=== PATIENT | male | born 1950 | race Caucasian/White ===

== ENCOUNTER 2021-02-06 00:05 | Observation (INO) ==
[2021-02-06] MEDS ORDERED: Aspirin 81 MG TAB.CHEW PO ONE (00:17)
[2021-02-06] MEDS ORDERED: Nitroglycerin 0.4 MG TAB.SUBL SL PRN (00:17)
[2021-02-06 00:59] LABS: Bilirubin,Urine Negative (Negative); Blood,Urine Negative (Negative); Clarity,Urine Clear (Clear); Color,Urine Light-Yellow (Yellow); Glucose,Urine (UA) Normal (Normal); Ketones,Urine Negative (Negative); Leukocyte Esterase,Urine Negative (Negative); Nitrite,Urine Negative (Negative); Protein,Urine Negative (Neg-Trace); Urobilinogen,Urine Normal (Normal)
[2021-02-06 01:01] LABS: Basophils # 0.1 K/mcL (0.0-0.2); Basophils % 1.6 %; Eosinophils # 0.4 K/mcL (0.0-0.6); Eosinophils % 4.8 %; Hematocrit 41.5 % (37.5-50.1); Hemoglobin 12.8 g/dL (12.9-16.9); Lymphocytes # 1.7 K/mcL (0.6-4.6); Lymphocytes % 22.7 %; Mean Corpuscular HGB Conc 30.8 g/dL (31.6-35.5); Mean Corpuscular Hemoglobin 28.3 pg (28.0-33.3); Mean Corpuscular Volume 91.8 fL (83.0-100.0); Mean Platelet Volume 9.6 fL (9.4-12.4); Monocytes # 0.6 K/mcL (0.0-1.3); Monocytes % 8.3 %; Neutrophils # 4.4 K/mcL (1.6-8.9); Platelet Count 148 K/mcL (140-400); Red Blood Count 4.52 M/mcL (4.19-5.50); Red Cell Distribution Width 15.8 % (11.5-14.5); Segmented Neutrophils % 58.6 %; White Blood Count 7.5 K/mcL (4.3-11.1)
[2021-02-06 01:12] LABS: Activated Partial Thrombo Time 29.3 Seconds (26.0-36.0)
[2021-02-06 01:24] LABS: Alanine Aminotransferase 24 Units/L (7-52); Albumin 3.9 g/dL (3.5-5.7); Albumin/Globulin Ratio 1.5 (1.1-2.2); Alkaline Phosphatase 86 Units/L (34-104); Aspartate Amino Transferase 25 Units/L (13-39); BUN/Creatinine Ratio 14 (6-26); Bilirubin,Direct 0.1 mg/dL (0.0-0.2); Bilirubin,Indirect 0.2 mg/dL (0.0-1.0); Bilirubin,Total 0.3 mg/dL (0.3-1.0); Blood Urea Nitrogen 13 mg/dL (8-23); Calcium 9.2 mg/dL (8.6-10.3); Carbon Dioxide 24 mEq/L (23-29); Chloride 107 mEq/L (98-107); Globulin 2.6 g/dL (2.4-3.5); Glucose 143 mg/dL (70-105); Lipase 27 Units/L (11-82); Osmolality,Calculated 293 (280-300); Potassium 4.3 mEq/L (3.5-5.1); Sodium 140 mEq/L (136-145); Total Protein 6.5 g/dL (6.4-8.9); Troponin I < 0.03 ng/mL (< 0.04); eGFR For African Americans > 60 (> 60); eGFR For Non-African Americans > 60 (> 60)
[2021-02-06 02:07] LABS: Thyroid Stimulating Hormone 13.292 mcIU/mL (0.340-5.600)
[2021-02-06] MEDS ORDERED: *HR* LORazepam 2 MG/ML VIAL IVP PRN ×3 (03:26)
[2021-02-06] MEDS ORDERED: Perflutren Lipid Microsphere 1.3 ML in 0.9 % Sodium Chloride 8.7 ML IVP PRN (03:32)
[2021-02-06] MEDS ORDERED: Naloxone 0.4 MG/ML INJ IVP PRN (03:36)
[2021-02-06] MEDS ORDERED: Ondansetron 4 MG/2 ML VIAL IVP PRN (03:36)
[2021-02-06] MEDS ORDERED: Morphine Sulfate 2 MG/ML SYRINGE IVP PRN (04:00)
[2021-02-06] MEDS ORDERED: Levalbuterol Neb 1.25 MG/3 ML ONE (04:19)
[2021-02-06] MEDS: Levalbuterol Neb 1.25 MG/3 ML IH SCH ×4 (04:24→21:54)
[2021-02-06 05:45] LABS: Amylase 43 Units/L (29-103); Ethanol < 10 mg/dL (Less than 10); Magnesium 1.9 mg/dL (1.6-2.6)
[2021-02-06 05:50] LABS: % Iron Saturation 15 % (20-55); Iron 47 mcg/dL (65-175); Transferrin 228 mg/dL (203-362)
[2021-02-06 06:05] LABS: Ferritin 336 ng/mL (20-250)
[2021-02-06 06:09] LABS: Folate 10.4 ng/mL (3.0-16.0)
[2021-02-06] MEDS: *HR* Heparin 5,000 UNIT/ML VIAL SQ SCH ×3 (06:14→22:30)
[2021-02-06 08:16] LABS: Estimated Average Glucose 117 mg/dl; Hemoglobin A1C 5.7 %
[2021-02-06] MEDS: FLUoxetine HCl 10 MG CAPSULE PO SCH (08:19)
[2021-02-06] MEDS: Aspirin Enteric Coated 81 MG Tablet PO SCH (08:19)
[2021-02-06] MEDS: Folic Acid 1 MG TABLET PO SCH (08:19)
[2021-02-06] MEDS: BuPROPion SR (12 HR) 100 MG TABLET PO SCH ×2 (08:19→22:30)
[2021-02-06] MEDS: Furosemide 40 MG TABLET PO SCH (08:19)
[2021-02-06] MEDS: allopurinoL 100 MG TABLET PO SCH (08:19)
[2021-02-06] MEDS: Topiramate 100 MG TABLET PO SCH ×2 (08:20→22:31)
[2021-02-06] MEDS: Vitamin B Complex/Vit C/Vit E 1 EACH TABLET PO SCH (08:20)
[2021-02-06] MEDS: ARIPiprazole 5 MG TABLET PO SCH (08:20)
[2021-02-06] MEDS: Cholecalciferol (D-3) 1,000 UNIT (25MCG) TABLET PO SCH (08:20)
[2021-02-06] MEDS ORDERED: Regadenoson 0.4 MG/5 ML SYRINGE IVP ONE (08:39)
[2021-02-06 12:06] LABS: Amphetamine Screen,Urine Negative ng/mL (Cutoff=1000); Barbiturate Screen,Urine Negative ng/mL (Cutoff=200); Benzodiazepines Screen,Urine Negative ng/mL (Cutoff=200); Cannabinoid Screen,Urine Negative ng/mL (Cutoff = 50); Cocaine Screen,Urine Negative ng/mL (Cutoff= 300); Opiate Screen,Urine Negative ng/mL (Cutoff=300); Phencyclidine Screen,Urine Negative ng/mL (Cutoff=25)
[2021-02-06] MEDS ORDERED: Levalbuterol Neb 1.25 MG/3 ML IH SCH (16:00)
[2021-02-06] MEDS ORDERED: Finasteride 5 MG TABLET PO SCH (21:00)
[2021-02-07] MEDS: Levalbuterol Neb 1.25 MG/3 ML IH SCH ×3 (03:30→15:33)
[2021-02-07] MEDS: *HR* Heparin 5,000 UNIT/ML VIAL SQ SCH ×2 (05:37→15:34)
[2021-02-07] MEDS: Folic Acid 1 MG TABLET PO SCH (07:54)
[2021-02-07] MEDS: FLUoxetine HCl 10 MG CAPSULE PO SCH (07:54)
[2021-02-07] MEDS: ARIPiprazole 5 MG TABLET PO SCH (07:54)
[2021-02-07] MEDS: Aspirin Enteric Coated 81 MG Tablet PO SCH (07:55)
[2021-02-07] MEDS: Topiramate 100 MG TABLET PO SCH (07:55)
[2021-02-07] MEDS: Vitamin B Complex/Vit C/Vit E 1 EACH TABLET PO SCH (07:55)
[2021-02-07] MEDS: Furosemide 40 MG TABLET PO SCH (07:55)
[2021-02-07] MEDS: Cholecalciferol (D-3) 1,000 UNIT (25MCG) TABLET PO SCH (07:55)
[2021-02-07] MEDS: allopurinoL 100 MG TABLET PO SCH (07:55)
[2021-02-07] MEDS: BuPROPion SR (12 HR) 100 MG TABLET PO SCH (07:56)
[2021-02-07] MEDS ORDERED: Aspirin 81 MG TAB.CHEW PO SCH (11:15)
[2021-02-07] MEDS ORDERED: Metoprolol XL (24 HR) Succ 25 MG TAB.ER.24H PO SCH (11:15)
[2021-02-07 13:58] LABS: Adenovirus Not Detected (Not Detect); Bordetella Pertussis Not Detected (Not Detect); Chlamydophila pneumoniae Not Detected (Not Detect); Coronavirus 229E Not Detected (Not Detect); Coronavirus HKU1 Not Detected (Not Detect); Coronavirus NL63 Not Detected (Not Detect); Coronavirus OC43 Not Detected (Not Detect); Human Metapneumovirus Not Detected (Not Detect); Human Rhinovirus/Enterovirus Not Detected (Not Detect); Influenza A Subtype 2009 H1 Not Detected (Not Detect); Influenza B Not Detected (Not Detect); Mycoplasma pneumoniae Not Detected (Not Detect); Parainfluenza Virus 1 Not Detected (Not Detect); Parainfluenza Virus 2 Not Detected (Not Detect); Parainfluenza Virus 3 Not Detected (Not Detect); Parainfluenza Virus 4 Not Detected (Not Detect); Respiratory Syncytial Virus Not Detected (Not Detect); SARS-CoV-2 Not Detected (Not Detect)
[2021-02-07 15:28] VITALS: BP 126/69
== END 2021-02-07 19:44 ==
LOC: EMEROOARM 00:05 → 3BNU 00:05 → SUATTDRO 02:08 → 3BNU 02:50
PROVIDERS: ADMIT Internal Medicine; ATTEND Internal Medicine

== ENCOUNTER 2021-02-09 16:23 | Observation (INO) ==
[2021-02-09] MEDS ORDERED: Ondansetron 4 MG/2 ML VIAL IVP PRN (19:47)
[2021-02-09] MEDS ORDERED: Melatonin 3 MG TABLET PO PRN (19:47)
[2021-02-09] MEDS ORDERED: Naloxone 0.4 MG/ML INJ IVP PRN (19:47)
[2021-02-09] MEDS ORDERED: Acetaminophen 325 MG TABLET PO PRN (19:47)
[2021-02-09] MEDS: Furosemide 40 MG TABLET PO SCH (21:37)
[2021-02-09] MEDS: Finasteride 5 MG TABLET PO SCH (21:38)
[2021-02-10 04:55] LABS: BUN/Creatinine Ratio 18 (6-26); Blood Urea Nitrogen 21 mg/dL (8-23); Calcium 9.1 mg/dL (8.6-10.3); Carbon Dioxide 25 mEq/L (23-29); Chloride 104 mEq/L (98-107); Glucose 125 mg/dL (70-105); Osmolality,Calculated 290 (280-300); Sodium 138 mEq/L (136-145); eGFR For African Americans > 60 (> 60); eGFR For Non-African Americans > 60 (> 60)
[2021-02-10 04:57] LABS: INR 1.2; Prothrombin Time 13.4 Seconds (9.4-12.1)
[2021-02-10 04:59] LABS: Basophils # 0.1 K/mcL (0.0-0.2); Basophils % 1.5 %; Eosinophils # 0.3 K/mcL (0.0-0.6); Eosinophils % 4.6 %; Hematocrit 41.2 % (37.5-50.1); Hemoglobin 13.1 g/dL (12.9-16.9); Immature Granulocytes % 4.2 % (0-4); Lymphocytes # 1.8 K/mcL (0.6-4.6); Lymphocytes % 29.9 %; Mean Corpuscular HGB Conc 31.8 g/dL (31.6-35.5); Mean Corpuscular Hemoglobin 29.1 pg (28.0-33.3); Mean Corpuscular Volume 91.6 fL (83.0-100.0); Mean Platelet Volume 9.9 fL (9.4-12.4); Monocytes # 0.8 K/mcL (0.0-1.3); Monocytes % 13.1 %; Neutrophils # 2.9 K/mcL (1.6-8.9); Platelet Count 156 K/mcL (140-400); Red Cell Distribution Width 15.8 % (11.5-14.5); Segmented Neutrophils % 46.7 %; White Blood Count 6.1 K/mcL (4.3-11.1)
[2021-02-10] MEDS ORDERED: Dextrose Gel 15 GM/37.5 ML TUBE PO PRN ×2 (07:50)
[2021-02-10] MEDS ORDERED: *HR* Dextrose 50 % in Water (Vial) 50 ML VIAL IVP PRN (07:50)
[2021-02-10] MEDS ORDERED: D5% in Water 1,000 ML IVC PRN (07:50)
[2021-02-10] MEDS ORDERED: Aspirin Enteric Coated 81 MG Tablet PO SCH (09:00)
[2021-02-10 10:15] LABS: Hemoglobin 13.5 g/dL (12.9-16.9)
[2021-02-10] MEDS: allopurinoL 100 MG TABLET PO SCH (10:20)
[2021-02-10] MEDS: Cholecalciferol (D-3) 1,000 UNIT (25MCG) TABLET PO SCH (10:20)
[2021-02-10] MEDS: Cyanocobalamin (B-12) 1,000 MCG TABLET PO SCH (10:20)
[2021-02-10] MEDS: BuPROPion XL (24 HR) 150 MG TABLET PO SCH (10:20)
[2021-02-10] MEDS: Divalproex (24 HR) 500 MG TABLET PO SCH (10:20)
[2021-02-10] MEDS: Metoprolol XL (24 HR) Succ 25 MG TAB.ER.24H PO SCH (10:20)
[2021-02-10] MEDS ORDERED: methylPREDNISolone 125 MG/2 ML VIAL IVP ONE (12:34)
[2021-02-10] MEDS ORDERED: *HR* LORazepam 2 MG/ML VIAL IVP PRN (12:35)
[2021-02-10] MEDS ORDERED: Ipratropium/Albuterol Neb 3 ML IH PRN (14:30)
[2021-02-10] MEDS ORDERED: haloperidoL 5 MG TABLET PO PRN (14:30)
[2021-02-10] MEDS ORDERED: (Ketotifen Fumarate [Zaditor] 5 ML Drops) OP PRN (14:56)
[2021-02-10] MEDS: Furosemide 40 MG TABLET PO SCH (16:53)
[2021-02-10] MEDS ORDERED: SODIUM CHLORIDE/NAHCO3/KCL/PEG 4,000 ML SOLN.RECON PO ONE (18:00)
[2021-02-10] MEDS: Nystatin Cream 15 GM TUBE TP SCH ×2 (19:50→20:40)
[2021-02-10] MEDS: Finasteride 5 MG TABLET PO SCH (20:40)
[2021-02-10] MEDS: *HR* LORazepam 1 MG TABLET PO SCH (20:40)
[2021-02-10] MEDS: traZODone 50 MG TABLET PO SCH (20:40)
[2021-02-11] MEDS: Cholecalciferol (D-3) 1,000 UNIT (25MCG) TABLET PO SCH (07:38)
[2021-02-11] MEDS: Cyanocobalamin (B-12) 1,000 MCG TABLET PO SCH (07:39)
[2021-02-11] MEDS: Divalproex (24 HR) 500 MG TABLET PO SCH (07:39)
[2021-02-11] MEDS: allopurinoL 100 MG TABLET PO SCH (07:39)
[2021-02-11] MEDS: Spironolactone 25 MG TABLET PO SCH (07:39)
[2021-02-11] MEDS: Thiamine (B-1) 100 MG TABLET PO SCH (07:39)
[2021-02-11] MEDS: Metoprolol XL (24 HR) Succ 25 MG TAB.ER.24H PO SCH (07:39)
[2021-02-11] MEDS: Nystatin Cream 15 GM TUBE TP SCH ×2 (07:39→21:43)
[2021-02-11] MEDS: BuPROPion XL (24 HR) 150 MG TABLET PO SCH (07:39)
[2021-02-11] MEDS: Multivit/Ca/Min/Fe/FA 1 TAB TABLET PO SCH (07:39)
[2021-02-11] MEDS: Folic Acid 1 MG TABLET PO SCH (07:39)
[2021-02-11] MEDS: Ipratropium/Albuterol Neb 3 ML IH SCH ×3 (10:08→22:38)
[2021-02-11 11:31] LABS: Basophils # 0.1 K/mcL (0.0-0.2); Basophils % 1.1 %; Eosinophils # 0.2 K/mcL (0.0-0.6); Eosinophils % 3.8 %; Hematocrit 44.4 % (37.5-50.1); Hemoglobin 13.8 g/dL (12.9-16.9); Immature Granulocytes % 2.4 % (0-4); Lymphocytes # 1.8 K/mcL (0.6-4.6); Lymphocytes % 27.7 %; Mean Corpuscular HGB Conc 31.1 g/dL (31.6-35.5); Mean Corpuscular Hemoglobin 28.5 pg (28.0-33.3); Mean Corpuscular Volume 91.5 fL (83.0-100.0); Mean Platelet Volume 10.1 fL (9.4-12.4); Monocytes # 0.7 K/mcL (0.0-1.3); Monocytes % 11.3 %; Neutrophils # 3.4 K/mcL (1.6-8.9); Platelet Count 164 K/mcL (140-400); Red Blood Count 4.85 M/mcL (4.19-5.50); Red Cell Distribution Width 15.3 % (11.5-14.5); Segmented Neutrophils % 53.7 %; White Blood Count 6.4 K/mcL (4.3-11.1)
[2021-02-11 11:49] LABS: BUN/Creatinine Ratio 18 (6-26); Blood Urea Nitrogen 21 mg/dL (8-23); Calcium 9.2 mg/dL (8.6-10.3); Carbon Dioxide 24 mEq/L (23-29); Chloride 103 mEq/L (98-107); Glucose 150 mg/dL (70-105); Osmolality,Calculated 290 (280-300); Potassium 3.9 mEq/L (3.5-5.1); Sodium 137 mEq/L (136-145); eGFR For African Americans > 60 (> 60); eGFR For Non-African Americans > 60 (> 60)
[2021-02-11 11:50] LABS: % Iron Saturation 21 % (20-55); Iron 86 mcg/dL (65-175); Transferrin 287 mg/dL (203-362)
[2021-02-11 12:07] LABS: Ferritin 480 ng/mL (20-250)
[2021-02-11 12:23] LABS: Folate > 22.3 ng/mL (3.0-16.0); Vitamin B12 > 1500 pg/mL (250-1100)
[2021-02-11] MEDS: Apixaban 5 MG TABLET PO SCH ×2 (14:12→21:42)
[2021-02-11] MEDS ORDERED: DiphenhydraMINE CREAM 28.4 GM TUBE TP PRN (14:34)
[2021-02-11] MEDS: Furosemide 40 MG TABLET PO SCH (18:05)
[2021-02-11 18:57] LABS: Adenovirus Not Detected (Not Detect); Bordetella Pertussis Not Detected (Not Detect); Chlamydophila pneumoniae Not Detected (Not Detect); Coronavirus 229E Not Detected (Not Detect); Coronavirus HKU1 Not Detected (Not Detect); Coronavirus NL63 Not Detected (Not Detect); Coronavirus OC43 Not Detected (Not Detect); Human Metapneumovirus Not Detected (Not Detect); Human Rhinovirus/Enterovirus Not Detected (Not Detect); Influenza A Subtype 2009 H1 Not Detected (Not Detect); Influenza B Not Detected (Not Detect); Mycoplasma pneumoniae Not Detected (Not Detect); Parainfluenza Virus 1 Not Detected (Not Detect); Parainfluenza Virus 2 Not Detected (Not Detect); Parainfluenza Virus 3 Not Detected (Not Detect); Parainfluenza Virus 4 Not Detected (Not Detect); Respiratory Syncytial Virus Not Detected (Not Detect); SARS-CoV-2 Not Detected (Not Detect)
[2021-02-11] MEDS: *HR* LORazepam 1 MG TABLET PO SCH (21:42)
[2021-02-11] MEDS: traZODone 50 MG TABLET PO SCH (21:42)
[2021-02-11] MEDS: Psyllium 1 PACKET POWD.PACK PO SCH (21:42)
[2021-02-11] MEDS: Finasteride 5 MG TABLET PO SCH (21:42)
[2021-02-11] MEDS: Hydrocortisone Rectal 2.5% CRM 28 GM TUBE RC SCH (21:43)
[2021-02-12 03:26] VITALS: BP 136/80
[2021-02-12] MEDS: Ipratropium/Albuterol Neb 3 ML IH SCH (03:56)
[2021-02-12 07:21] LABS: Hematocrit 43.2 % (37.5-50.1); Hemoglobin 13.8 g/dL (12.9-16.9)
[2021-02-12] MEDS: Divalproex (24 HR) 500 MG TABLET PO SCH (09:08)
[2021-02-12] MEDS: Apixaban 5 MG TABLET PO SCH (09:08)
[2021-02-12] MEDS: Cholecalciferol (D-3) 1,000 UNIT (25MCG) TABLET PO SCH (09:09)
[2021-02-12] MEDS: BuPROPion XL (24 HR) 150 MG TABLET PO SCH (09:09)
[2021-02-12] MEDS: Multivit/Ca/Min/Fe/FA 1 TAB TABLET PO SCH (09:09)
[2021-02-12] MEDS: Spironolactone 25 MG TABLET PO SCH (09:09)
[2021-02-12] MEDS: Thiamine (B-1) 100 MG TABLET PO SCH (09:09)
[2021-02-12] MEDS: Metoprolol XL (24 HR) Succ 25 MG TAB.ER.24H PO SCH (09:09)
[2021-02-12] MEDS: Cyanocobalamin (B-12) 1,000 MCG TABLET PO SCH (09:10)
[2021-02-12] MEDS: Folic Acid 1 MG TABLET PO SCH (09:11)
[2021-02-12] MEDS: Nystatin Cream 15 GM TUBE TP SCH (09:11)
[2021-02-12] MEDS: Hydrocortisone Rectal 2.5% CRM 28 GM TUBE RC SCH (09:11)
[2021-02-12] MEDS: Psyllium 1 PACKET POWD.PACK PO SCH (09:11)
[2021-02-12] MEDS: allopurinoL 100 MG TABLET PO SCH (09:11)
[2021-02-18] MEDS ORDERED: Apixaban 5 MG TABLET PO SCH (09:00)
== END 2021-02-12 09:39 ==
LOC: 2ANU → SUATTDRO 17:28 → 2ANU 02-11 01:53
PROVIDERS: ADMIT Internal Medicine; ATTEND Internal Medicine

== ENCOUNTER 2021-02-25 20:32 | Inpatient (IN) ==
[2021-02-25] MEDS ORDERED: Acetaminophen 325 MG TABLET PO PRN (22:59)
[2021-02-25] MEDS ORDERED: Naloxone 0.4 MG/ML INJ IVP PRN (22:59)
[2021-02-25] MEDS ORDERED: Ondansetron 4 MG/2 ML VIAL IVP PRN (22:59)
[2021-02-26 00:50] LABS: Basophils # 0.1 K/mcL (0.0-0.2); Basophils % 1.3 %; Eosinophils # 0.3 K/mcL (0.0-0.6); Eosinophils % 4.1 %; Hematocrit 38.8 % (37.5-50.1); Hemoglobin 12.3 g/dL (12.9-16.9); Immature Granulocytes % 2.2 % (0-4); Lymphocytes # 1.9 K/mcL (0.6-4.6); Lymphocytes % 24.2 %; Mean Corpuscular HGB Conc 31.7 g/dL (31.6-35.5); Mean Corpuscular Hemoglobin 28.9 pg (28.0-33.3); Mean Corpuscular Volume 91.3 fL (83.0-100.0); Monocytes # 0.9 K/mcL (0.0-1.3); Monocytes % 11.1 %; Neutrophils # 4.4 K/mcL (1.6-8.9); Platelet Count 150 K/mcL (140-400); Red Blood Count 4.25 M/mcL (4.19-5.50); Red Cell Distribution Width 15.3 % (11.5-14.5); Segmented Neutrophils % 57.1 %; White Blood Count 7.7 K/mcL (4.3-11.1)
[2021-02-26] MEDS: Nystatin POWDER 30 GM BOTTLE TP SCH ×4 (01:02→20:27)
[2021-02-26 01:07] LABS: Alanine Aminotransferase 23 Units/L (7-52); Albumin 3.9 g/dL (3.5-5.7); Albumin/Globulin Ratio 1.6 (1.1-2.2); Alkaline Phosphatase 69 Units/L (34-104); Aspartate Amino Transferase 24 Units/L (13-39); BUN/Creatinine Ratio 18 (6-26); Bilirubin,Total 0.4 mg/dL (0.3-1.0); Blood Urea Nitrogen 19 mg/dL (8-23); Calcium 9.1 mg/dL (8.6-10.3); Carbon Dioxide 25 mEq/L (23-29); Chloride 108 mEq/L (98-107); Globulin 2.4 g/dL (2.4-3.5); Glucose 114 mg/dL (70-105); Osmolality,Calculated 293 (280-300); Phosphorous 4.1 mg/dL (2.7-4.5); Potassium 4.1 mEq/L (3.5-5.1); Sodium 140 mEq/L (136-145); Total Protein 6.3 g/dL (6.4-8.9); eGFR For African Americans > 60 (> 60); eGFR For Non-African Americans > 60 (> 60)
[2021-02-26] MEDS: Furosemide 40 MG TABLET PO SCH (06:30)
[2021-02-26] MEDS: Apixaban 5 MG TABLET PO SCH ×2 (09:39→20:16)
[2021-02-26 11:30] LABS: Adenovirus Not Detected (Not Detect); Bordetella Pertussis Not Detected (Not Detect); Chlamydophila pneumoniae Not Detected (Not Detect); Coronavirus 229E Not Detected (Not Detect); Coronavirus HKU1 Not Detected (Not Detect); Coronavirus NL63 Not Detected (Not Detect); Coronavirus OC43 Not Detected (Not Detect); Human Metapneumovirus Not Detected (Not Detect); Human Rhinovirus/Enterovirus Not Detected (Not Detect); Influenza A Subtype 2009 H1 Not Detected (Not Detect); Influenza B Not Detected (Not Detect); Mycoplasma pneumoniae Not Detected (Not Detect); Parainfluenza Virus 1 Not Detected (Not Detect); Parainfluenza Virus 2 Not Detected (Not Detect); Parainfluenza Virus 3 Not Detected (Not Detect); Parainfluenza Virus 4 Not Detected (Not Detect); Respiratory Syncytial Virus Not Detected (Not Detect); SARS-CoV-2 Not Detected (Not Detect)
[2021-02-26] MEDS ORDERED: Ketotifen Fumarate [Zaditor] OP PRN (14:00)
[2021-02-26] MEDS: BuPROPion XL (24 HR) 150 MG TABLET PO SCH (18:01)
[2021-02-26] MEDS: traZODone 50 MG TABLET PO SCH (20:16)
[2021-02-26] MEDS: Finasteride 5 MG TABLET PO SCH (20:16)
[2021-02-26] MEDS: Divalproex (24 HR) 500 MG TABLET PO SCH (20:16)
[2021-02-26] MEDS: DiphenhydraMINE CREAM 28.4 GM TUBE TP SCH (20:17)
[2021-02-27] MEDS: Furosemide 40 MG TABLET PO SCH (04:44)
[2021-02-27 05:16] LABS: Hematocrit 39.1 % (37.5-50.1); Hemoglobin 12.5 g/dL (12.9-16.9); Mean Corpuscular Hemoglobin 29.5 pg (28.0-33.3); Mean Corpuscular Volume 92.2 fL (83.0-100.0); Platelet Count 152 K/mcL (140-400); Red Blood Count 4.24 M/mcL (4.19-5.50); Red Cell Distribution Width 15.3 % (11.5-14.5); White Blood Count 7.1 K/mcL (4.3-11.1)
[2021-02-27 05:33] LABS: BUN/Creatinine Ratio 19 (6-26); Blood Urea Nitrogen 21 mg/dL (8-23); Calcium 9.1 mg/dL (8.6-10.3); Carbon Dioxide 27 mEq/L (23-29); Chloride 108 mEq/L (98-107); Glucose 111 mg/dL (70-105); Magnesium 2.1 mg/dL (1.6-2.6); Osmolality,Calculated 294 (280-300); Potassium 3.9 mEq/L (3.5-5.1); Sodium 140 mEq/L (136-145); eGFR For African Americans > 60 (> 60); eGFR For Non-African Americans > 60 (> 60)
[2021-02-27] MEDS ORDERED: BuPROPion XL (24 HR) 150 MG TABLET PO SCH (09:00)
[2021-02-27] MEDS: DiphenhydraMINE CREAM 28.4 GM TUBE TP SCH ×2 (09:08→20:39)
[2021-02-27] MEDS: BuPROPion XL (24 HR) 150 MG TABLET PO SCH (09:08)
[2021-02-27] MEDS: Cholecalciferol (D-3) 1,000 UNIT (25MCG) TABLET PO SCH (09:08)
[2021-02-27] MEDS: Apixaban 5 MG TABLET PO SCH ×2 (09:08→20:38)
[2021-02-27] MEDS: allopurinoL 100 MG TABLET PO SCH (09:08)
[2021-02-27] MEDS: Nystatin POWDER 30 GM BOTTLE TP SCH ×3 (09:09→20:39)
[2021-02-27] MEDS: Tiotropium 10 INH DOSE IH SCH (10:43)
[2021-02-27] MEDS ORDERED: *HR* LORazepam 2 MG/ML VIAL IVP PRN ×3 (18:12)
[2021-02-27] MEDS: Finasteride 5 MG TABLET PO SCH (20:38)
[2021-02-27] MEDS: Divalproex (24 HR) 500 MG TABLET PO SCH (20:38)
[2021-02-27] MEDS: traZODone 50 MG TABLET PO SCH (20:39)
[2021-02-28 01:53] LABS: Hematocrit 40.7 % (37.5-50.1); Hemoglobin 12.6 g/dL (12.9-16.9); Mean Corpuscular Hemoglobin 29.1 pg (28.0-33.3); Mean Platelet Volume 10.1 fL (9.4-12.4); Platelet Count 152 K/mcL (140-400); Red Blood Count 4.33 M/mcL (4.19-5.50)
[2021-02-28 02:10] LABS: BUN/Creatinine Ratio 17 (6-26); Blood Urea Nitrogen 20 mg/dL (8-23); Calcium 9.1 mg/dL (8.6-10.3); Carbon Dioxide 27 mEq/L (23-29); Chloride 104 mEq/L (98-107); Glucose 104 mg/dL (70-105); Magnesium 2.1 mg/dL (1.6-2.6); Osmolality,Calculated 289 (280-300); Phosphorous 4.8 mg/dL (2.7-4.5); Potassium 4.1 mEq/L (3.5-5.1); Sodium 138 mEq/L (136-145); eGFR For African Americans > 60 (> 60); eGFR For Non-African Americans > 60 (> 60)
[2021-02-28] MEDS: Furosemide 40 MG TABLET PO SCH (04:47)
[2021-02-28] MEDS: Tiotropium 10 INH DOSE IH SCH (07:28)
[2021-02-28] MEDS: BuPROPion XL (24 HR) 150 MG TABLET PO SCH (08:35)
[2021-02-28] MEDS: DiphenhydraMINE CREAM 28.4 GM TUBE TP SCH ×2 (08:35→19:49)
[2021-02-28] MEDS: Folic Acid 1 MG TABLET PO SCH (08:35)
[2021-02-28] MEDS: Thiamine (B-1) 100 MG TABLET PO SCH (08:35)
[2021-02-28] MEDS: Nystatin POWDER 30 GM BOTTLE TP SCH ×3 (08:35→19:49)
[2021-02-28] MEDS: Cholecalciferol (D-3) 1,000 UNIT (25MCG) TABLET PO SCH (08:35)
[2021-02-28] MEDS: Vitamin B Complex/Vit C/Vit E 1 EACH TABLET PO SCH (08:35)
[2021-02-28] MEDS: allopurinoL 100 MG TABLET PO SCH (08:35)
[2021-02-28] MEDS: Apixaban 5 MG TABLET PO SCH ×2 (08:35→19:49)
[2021-02-28] MEDS: traZODone 50 MG TABLET PO SCH (19:49)
[2021-02-28] MEDS: Divalproex (24 HR) 500 MG TABLET PO SCH (19:49)
[2021-02-28] MEDS: Finasteride 5 MG TABLET PO SCH (19:49)
[2021-03-01 02:55] LABS: Hemoglobin 12.2 g/dL (12.9-16.9); Mean Corpuscular HGB Conc 32.1 g/dL (31.6-35.5); Mean Corpuscular Hemoglobin 29.5 pg (28.0-33.3); Mean Platelet Volume 10.2 fL (9.4-12.4); Platelet Count 153 K/mcL (140-400); Red Blood Count 4.13 M/mcL (4.19-5.50); Red Cell Distribution Width 14.9 % (11.5-14.5); White Blood Count 6.8 K/mcL (4.3-11.1)
[2021-03-01 03:16] LABS: BUN/Creatinine Ratio 18 (6-26); Blood Urea Nitrogen 21 mg/dL (8-23); Calcium 8.8 mg/dL (8.6-10.3); Carbon Dioxide 25 mEq/L (23-29); Chloride 106 mEq/L (98-107); Glucose 121 mg/dL (70-105); Magnesium 1.9 mg/dL (1.6-2.6); Osmolality,Calculated 290 (280-300); Phosphorous 3.8 mg/dL (2.7-4.5); Potassium 4.1 mEq/L (3.5-5.1); Sodium 138 mEq/L (136-145); eGFR For African Americans > 60 (> 60); eGFR For Non-African Americans > 60 (> 60)
[2021-03-01] MEDS: Furosemide 40 MG TABLET PO SCH (05:57)
[2021-03-01] MEDS: Thiamine (B-1) 100 MG TABLET PO SCH (07:25)
[2021-03-01] MEDS: allopurinoL 100 MG TABLET PO SCH (07:25)
[2021-03-01] MEDS: Folic Acid 1 MG TABLET PO SCH (07:25)
[2021-03-01] MEDS: BuPROPion XL (24 HR) 150 MG TABLET PO SCH (07:25)
[2021-03-01] MEDS: Apixaban 5 MG TABLET PO SCH ×2 (07:25→22:37)
[2021-03-01] MEDS: Nystatin POWDER 30 GM BOTTLE TP SCH ×3 (07:25→22:38)
[2021-03-01] MEDS: Vitamin B Complex/Vit C/Vit E 1 EACH TABLET PO SCH (07:25)
[2021-03-01] MEDS: Cholecalciferol (D-3) 1,000 UNIT (25MCG) TABLET PO SCH (07:25)
[2021-03-01] MEDS: DiphenhydraMINE CREAM 28.4 GM TUBE TP SCH ×2 (07:26→22:38)
[2021-03-01] MEDS: Tiotropium 10 INH DOSE IH SCH (07:34)
[2021-03-01] MEDS: traZODone 50 MG TABLET PO SCH (22:37)
[2021-03-01] MEDS: Divalproex (24 HR) 500 MG TABLET PO SCH (22:37)
[2021-03-01] MEDS: Melatonin 3 MG TABLET PO PRN (22:37)
[2021-03-01] MEDS: Finasteride 5 MG TABLET PO SCH (22:37)
[2021-03-02] MEDS: Furosemide 40 MG TABLET PO SCH (06:03)
[2021-03-02] MEDS: Apixaban 5 MG TABLET PO SCH ×2 (07:13→21:03)
[2021-03-02] MEDS: Thiamine (B-1) 100 MG TABLET PO SCH (07:13)
[2021-03-02] MEDS: Cholecalciferol (D-3) 1,000 UNIT (25MCG) TABLET PO SCH (07:13)
[2021-03-02] MEDS: DiphenhydraMINE CREAM 28.4 GM TUBE TP SCH ×2 (07:13→21:04)
[2021-03-02] MEDS: Folic Acid 1 MG TABLET PO SCH (07:13)
[2021-03-02] MEDS: BuPROPion XL (24 HR) 150 MG TABLET PO SCH (07:13)
[2021-03-02] MEDS: allopurinoL 100 MG TABLET PO SCH (07:13)
[2021-03-02] MEDS: Nystatin POWDER 30 GM BOTTLE TP SCH ×3 (07:13→21:04)
[2021-03-02] MEDS: Vitamin B Complex/Vit C/Vit E 1 EACH TABLET PO SCH (07:13)
[2021-03-02] MEDS: Tiotropium 10 INH DOSE IH SCH (07:42)
[2021-03-02] MEDS: Divalproex (24 HR) 500 MG TABLET PO SCH (21:03)
[2021-03-02] MEDS: Finasteride 5 MG TABLET PO SCH (21:04)
[2021-03-02] MEDS: traZODone 50 MG TABLET PO SCH (21:04)
[2021-03-02] MEDS ORDERED: *HR* LORazepam 2 MG/ML VIAL IVP ONE (22:03)
[2021-03-03] MEDS: Furosemide 40 MG TABLET PO SCH (05:30)
[2021-03-03] MEDS: Tiotropium 10 INH DOSE IH SCH (07:47)
[2021-03-03] MEDS: Thiamine (B-1) 100 MG TABLET PO SCH (08:42)
[2021-03-03] MEDS: allopurinoL 100 MG TABLET PO SCH (08:42)
[2021-03-03] MEDS: Folic Acid 1 MG TABLET PO SCH (08:42)
[2021-03-03] MEDS: Vitamin B Complex/Vit C/Vit E 1 EACH TABLET PO SCH (08:42)
[2021-03-03] MEDS: BuPROPion XL (24 HR) 150 MG TABLET PO SCH (08:42)
[2021-03-03] MEDS: Cholecalciferol (D-3) 1,000 UNIT (25MCG) TABLET PO SCH (08:42)
[2021-03-03] MEDS: Apixaban 5 MG TABLET PO SCH ×2 (08:42→20:40)
[2021-03-03] MEDS: Nystatin POWDER 30 GM BOTTLE TP SCH ×3 (08:43→20:41)
[2021-03-03] MEDS: DiphenhydraMINE CREAM 28.4 GM TUBE TP SCH ×2 (08:43→20:41)
[2021-03-03 10:34] LABS: Adenovirus Not Detected (Not Detect); Bordetella Pertussis Not Detected (Not Detect); Chlamydophila pneumoniae Not Detected (Not Detect); Coronavirus 229E Not Detected (Not Detect); Coronavirus HKU1 Not Detected (Not Detect); Coronavirus NL63 Not Detected (Not Detect); Coronavirus OC43 Not Detected (Not Detect); Human Metapneumovirus Not Detected (Not Detect); Human Rhinovirus/Enterovirus Not Detected (Not Detect); Influenza A Subtype 2009 H1 Not Detected (Not Detect); Influenza B Not Detected (Not Detect); Mycoplasma pneumoniae Not Detected (Not Detect); Parainfluenza Virus 1 Not Detected (Not Detect); Parainfluenza Virus 2 Not Detected (Not Detect); Parainfluenza Virus 3 Not Detected (Not Detect); Parainfluenza Virus 4 Not Detected (Not Detect); Respiratory Syncytial Virus Not Detected (Not Detect); SARS-CoV-2 Not Detected (Not Detect)
[2021-03-03 17:29] LABS: Bilirubin,Urine Negative (Negative); Blood,Urine Negative (Negative); Clarity,Urine Clear (Clear); Color,Urine Yellow (Yellow); Glucose,Urine (UA) Normal (Normal); Ketones,Urine Negative (Negative); Leukocyte Esterase,Urine Negative (Negative); Nitrite,Urine Negative (Negative); Protein,Urine Negative (Neg-Trace); Specific Gravity,Urine 1.012 (1.010-1.025); Urobilinogen,Urine Normal (Normal)
[2021-03-03 17:52] LABS: Amphetamine Screen,Urine Negative ng/mL (Cutoff=1000); Barbiturate Screen,Urine Negative ng/mL (Cutoff=200); Benzodiazepines Screen,Urine Negative ng/mL (Cutoff=200); Cannabinoid Screen,Urine Negative ng/mL (Cutoff = 50); Cocaine Screen,Urine Negative ng/mL (Cutoff= 300); Opiate Screen,Urine Negative ng/mL (Cutoff=300); Phencyclidine Screen,Urine Negative ng/mL (Cutoff=25)
[2021-03-03] MEDS: Finasteride 5 MG TABLET PO SCH (20:40)
[2021-03-03] MEDS: traZODone 50 MG TABLET PO SCH (20:41)
[2021-03-03] MEDS: Divalproex (24 HR) 500 MG TABLET PO SCH (20:41)
[2021-03-04] MEDS: Furosemide 40 MG TABLET PO SCH (06:32)
[2021-03-04] MEDS: Tiotropium 10 INH DOSE IH SCH (07:28)
[2021-03-04] MEDS: BuPROPion XL (24 HR) 150 MG TABLET PO SCH (08:30)
[2021-03-04] MEDS: Folic Acid 1 MG TABLET PO SCH (08:30)
[2021-03-04] MEDS: Apixaban 5 MG TABLET PO SCH ×2 (08:30→21:18)
[2021-03-04] MEDS: Cholecalciferol (D-3) 1,000 UNIT (25MCG) TABLET PO SCH (08:30)
[2021-03-04] MEDS: Vitamin B Complex/Vit C/Vit E 1 EACH TABLET PO SCH (08:30)
[2021-03-04] MEDS: Thiamine (B-1) 100 MG TABLET PO SCH (08:30)
[2021-03-04] MEDS: allopurinoL 100 MG TABLET PO SCH (08:31)
[2021-03-04] MEDS: DiphenhydraMINE CREAM 28.4 GM TUBE TP SCH ×2 (08:31→21:17)
[2021-03-04] MEDS: Nystatin POWDER 30 GM BOTTLE TP SCH ×3 (08:31→21:17)
[2021-03-04] MEDS: Divalproex (24 HR) 500 MG TABLET PO SCH (21:18)
[2021-03-04] MEDS: Finasteride 5 MG TABLET PO SCH (21:18)
[2021-03-04] MEDS: traZODone 50 MG TABLET PO SCH (21:18)
[2021-03-05] MEDS: Furosemide 40 MG TABLET PO SCH (05:06)
[2021-03-05] MEDS: Tiotropium 10 INH DOSE IH SCH (07:58)
[2021-03-05] MEDS: Cholecalciferol (D-3) 1,000 UNIT (25MCG) TABLET PO SCH (08:28)
[2021-03-05] MEDS: BuPROPion XL (24 HR) 150 MG TABLET PO SCH (08:28)
[2021-03-05] MEDS: Folic Acid 1 MG TABLET PO SCH (08:28)
[2021-03-05] MEDS: Apixaban 5 MG TABLET PO SCH ×2 (08:28→20:50)
[2021-03-05] MEDS: Vitamin B Complex/Vit C/Vit E 1 EACH TABLET PO SCH (08:28)
[2021-03-05] MEDS: allopurinoL 100 MG TABLET PO SCH (08:28)
[2021-03-05] MEDS: Nystatin POWDER 30 GM BOTTLE TP SCH ×3 (08:28→20:52)
[2021-03-05] MEDS: DiphenhydraMINE CREAM 28.4 GM TUBE TP SCH ×2 (08:28→20:52)
[2021-03-05] MEDS: Thiamine (B-1) 100 MG TABLET PO SCH (08:28)
[2021-03-05] MEDS: Divalproex (24 HR) 500 MG TABLET PO SCH (20:50)
[2021-03-05] MEDS: traZODone 50 MG TABLET PO SCH (20:51)
[2021-03-05] MEDS: Finasteride 5 MG TABLET PO SCH (20:51)
[2021-03-06] MEDS: Furosemide 40 MG TABLET PO SCH (05:35)
[2021-03-06] MEDS: Tiotropium 10 INH DOSE IH SCH (07:56)
[2021-03-06] MEDS: Thiamine (B-1) 100 MG TABLET PO SCH (08:48)
[2021-03-06] MEDS: allopurinoL 100 MG TABLET PO SCH (08:48)
[2021-03-06] MEDS: Cholecalciferol (D-3) 1,000 UNIT (25MCG) TABLET PO SCH (08:48)
[2021-03-06] MEDS: BuPROPion XL (24 HR) 150 MG TABLET PO SCH (08:48)
[2021-03-06] MEDS: Apixaban 5 MG TABLET PO SCH ×2 (08:48→21:04)
[2021-03-06] MEDS: Nystatin POWDER 30 GM BOTTLE TP SCH ×3 (08:48→21:02)
[2021-03-06] MEDS: DiphenhydraMINE CREAM 28.4 GM TUBE TP SCH ×2 (08:48→21:02)
[2021-03-06] MEDS: Folic Acid 1 MG TABLET PO SCH (08:48)
[2021-03-06] MEDS: Vitamin B Complex/Vit C/Vit E 1 EACH TABLET PO SCH (08:48)
[2021-03-06] MEDS: Melatonin 3 MG TABLET PO PRN (21:04)
[2021-03-06] MEDS: Divalproex (24 HR) 500 MG TABLET PO SCH (21:04)
[2021-03-06] MEDS: Finasteride 5 MG TABLET PO SCH (21:04)
[2021-03-06] MEDS: traZODone 50 MG TABLET PO SCH (21:05)
[2021-03-07] MEDS: Furosemide 40 MG TABLET PO SCH (05:31)
[2021-03-07] MEDS: Tiotropium 10 INH DOSE IH SCH (07:49)
[2021-03-07] MEDS: DiphenhydraMINE CREAM 28.4 GM TUBE TP SCH ×2 (09:44→21:52)
[2021-03-07] MEDS: Nystatin POWDER 30 GM BOTTLE TP SCH ×3 (09:44→21:53)
[2021-03-07] MEDS: Apixaban 5 MG TABLET PO SCH ×2 (09:45→21:51)
[2021-03-07] MEDS: Vitamin B Complex/Vit C/Vit E 1 EACH TABLET PO SCH (09:45)
[2021-03-07] MEDS: Folic Acid 1 MG TABLET PO SCH (09:45)
[2021-03-07] MEDS: Thiamine (B-1) 100 MG TABLET PO SCH (09:45)
[2021-03-07] MEDS: allopurinoL 100 MG TABLET PO SCH (09:45)
[2021-03-07] MEDS: BuPROPion XL (24 HR) 150 MG TABLET PO SCH (09:45)
[2021-03-07] MEDS: Cholecalciferol (D-3) 1,000 UNIT (25MCG) TABLET PO SCH (09:45)
[2021-03-07] MEDS: Divalproex (24 HR) 500 MG TABLET PO SCH (21:51)
[2021-03-07] MEDS: traZODone 50 MG TABLET PO SCH (21:51)
[2021-03-07] MEDS: Melatonin 3 MG TABLET PO PRN (21:51)
[2021-03-07] MEDS: Finasteride 5 MG TABLET PO SCH (21:53)
[2021-03-08] MEDS: Furosemide 40 MG TABLET PO SCH (05:56)
[2021-03-08] MEDS: allopurinoL 100 MG TABLET PO SCH (07:49)
[2021-03-08] MEDS: Thiamine (B-1) 100 MG TABLET PO SCH (07:50)
[2021-03-08] MEDS: Cholecalciferol (D-3) 1,000 UNIT (25MCG) TABLET PO SCH (07:50)
[2021-03-08] MEDS: Vitamin B Complex/Vit C/Vit E 1 EACH TABLET PO SCH (07:50)
[2021-03-08] MEDS: Folic Acid 1 MG TABLET PO SCH (07:50)
[2021-03-08] MEDS: BuPROPion XL (24 HR) 150 MG TABLET PO SCH (07:50)
[2021-03-08] MEDS: Apixaban 5 MG TABLET PO SCH ×2 (07:50→19:49)
[2021-03-08] MEDS: Nystatin POWDER 30 GM BOTTLE TP SCH ×3 (07:51→19:51)
[2021-03-08] MEDS: DiphenhydraMINE CREAM 28.4 GM TUBE TP SCH ×2 (07:52→19:49)
[2021-03-08] MEDS: Tiotropium 10 INH DOSE IH SCH (08:06)
[2021-03-08] MEDS: Finasteride 5 MG TABLET PO SCH (19:49)
[2021-03-08] MEDS: Divalproex (24 HR) 500 MG TABLET PO SCH (19:49)
[2021-03-08] MEDS: traZODone 50 MG TABLET PO SCH (19:49)
[2021-03-09] MEDS: Tiotropium 10 INH DOSE IH SCH (07:49)
[2021-03-09] MEDS: Cholecalciferol (D-3) 1,000 UNIT (25MCG) TABLET PO SCH (07:54)
[2021-03-09] MEDS: Thiamine (B-1) 100 MG TABLET PO SCH (07:54)
[2021-03-09] MEDS: Folic Acid 1 MG TABLET PO SCH (07:54)
[2021-03-09] MEDS: Furosemide 40 MG TABLET PO SCH (07:54)
[2021-03-09] MEDS: BuPROPion XL (24 HR) 150 MG TABLET PO SCH (07:54)
[2021-03-09] MEDS: Nystatin POWDER 30 GM BOTTLE TP SCH ×3 (07:55→21:09)
[2021-03-09] MEDS: Vitamin B Complex/Vit C/Vit E 1 EACH TABLET PO SCH (07:55)
[2021-03-09] MEDS: allopurinoL 100 MG TABLET PO SCH (07:55)
[2021-03-09] MEDS: Apixaban 5 MG TABLET PO SCH ×2 (07:55→21:07)
[2021-03-09] MEDS: DiphenhydraMINE CREAM 28.4 GM TUBE TP SCH ×2 (08:35→21:09)
[2021-03-09] MEDS: Finasteride 5 MG TABLET PO SCH (21:07)
[2021-03-09] MEDS: Divalproex (24 HR) 500 MG TABLET PO SCH (21:07)
[2021-03-09] MEDS: Melatonin 3 MG TABLET PO PRN (21:08)
[2021-03-09] MEDS: traZODone 50 MG TABLET PO SCH (21:08)
[2021-03-10] MEDS: Furosemide 40 MG TABLET PO SCH (05:52)
[2021-03-10 07:29] VITALS: BP 149/77
[2021-03-10] MEDS: Tiotropium 10 INH DOSE IH SCH (08:09)
[2021-03-10] MEDS: Cholecalciferol (D-3) 1,000 UNIT (25MCG) TABLET PO SCH (08:36)
[2021-03-10] MEDS: Thiamine (B-1) 100 MG TABLET PO SCH (08:36)
[2021-03-10] MEDS: Nystatin POWDER 30 GM BOTTLE TP SCH (08:36)
[2021-03-10] MEDS: allopurinoL 100 MG TABLET PO SCH (08:36)
[2021-03-10] MEDS: BuPROPion XL (24 HR) 150 MG TABLET PO SCH (08:36)
[2021-03-10] MEDS: Vitamin B Complex/Vit C/Vit E 1 EACH TABLET PO SCH (08:36)
[2021-03-10] MEDS: DiphenhydraMINE CREAM 28.4 GM TUBE TP SCH (08:36)
[2021-03-10] MEDS: Folic Acid 1 MG TABLET PO SCH (08:36)
[2021-03-10] MEDS: Apixaban 5 MG TABLET PO SCH (08:36)
== END 2021-03-10 11:25 | disposition home or self-care (01) | DRG 606 ==
LOC: 3BNU → SUATTDRO 22:01
PROVIDERS: ADMIT Internal Medicine; ATTEND Internal Medicine

== ENCOUNTER 2021-05-26 11:53 | Inpatient (IN) ==
[2021-05-26 13:45] LABS: Basophils # 0.1 K/mcL (0.0-0.2); Basophils % 0.7 %; Eosinophils # 0.2 K/mcL (0.0-0.6); Eosinophils % 2.1 %; Hematocrit 41.1 % (37.5-50.1); Hemoglobin 12.9 g/dL (12.9-16.9); Immature Granulocytes % 1.4 % (0-4); Lymphocytes # 1.7 K/mcL (0.6-4.6); Lymphocytes % 18.2 %; Mean Corpuscular HGB Conc 31.4 g/dL (31.6-35.5); Mean Corpuscular Hemoglobin 28.7 pg (28.0-33.3); Mean Corpuscular Volume 91.5 fL (83.0-100.0); Mean Platelet Volume 10.2 fL (9.4-12.4); Monocytes # 0.8 K/mcL (0.0-1.3); Monocytes % 8.1 %; Neutrophils # 6.6 K/mcL (1.6-8.9); Platelet Count 155 K/mcL (140-400); Red Blood Count 4.49 M/mcL (4.19-5.50); Red Cell Distribution Width 14.1 % (11.5-14.5); Segmented Neutrophils % 69.5 %; White Blood Count 9.5 K/mcL (4.3-11.1)
[2021-05-26 14:09] LABS: Alanine Aminotransferase 17 Units/L (7-52); Albumin 4.3 g/dL (3.5-5.7); Alkaline Phosphatase 91 Units/L (34-104); Aspartate Amino Transferase 16 Units/L (13-39); BUN/Creatinine Ratio 13 (6-26); Bilirubin,Total 0.7 mg/dL (0.3-1.0); Blood Urea Nitrogen 13 mg/dL (8-23); Calcium 9.5 mg/dL (8.6-10.3); Carbon Dioxide 28 mEq/L (23-29); Chloride 106 mEq/L (98-107); Globulin 2.1 g/dL (2.4-3.5); Glucose 96 mg/dL (70-105); Osmolality,Calculated 290 (280-300); Sodium 140 mEq/L (136-145); Total Protein 6.4 g/dL (6.4-8.9); eGFR For African Americans > 60 (> 60); eGFR For Non-African Americans > 60 (> 60)
[2021-05-26] MEDS ORDERED: Vancomycin 2,000 MG/520 ML IV.SOLN IVPB ONE (14:46)
[2021-05-26] MEDS ORDERED: Cefepime HCl 1,000 MG in 0.9 % Sodium Chloride Mini Bag 100 ML IVPB STA (14:46)
[2021-05-26] MEDS ORDERED: Naloxone 0.4 MG/ML INJ IVP PRN (15:53)
[2021-05-26] MEDS ORDERED: Melatonin 3 MG TABLET PO PRN (15:53)
[2021-05-26] MEDS ORDERED: Ondansetron 4 MG/2 ML VIAL IVP PRN (15:53)
[2021-05-26 16:31] LABS: INR 1.1
[2021-05-26 16:34] LABS: Activated Partial Thrombo Time 29.4 Seconds (26.0-36.0)
[2021-05-26] MEDS ORDERED: Vancomycin 2,000 MG/520 ML IV.SOLN IVPB SCH (17:00)
[2021-05-26] MEDS ORDERED: Cefepime HCl 2,000 MG in 0.9 % Sodium Chloride Mini Bag 100 ML IVPB SCH (18:00)
[2021-05-26] MEDS ORDERED: Cefepime HCl 1,000 MG in Water for inj. (sterile) 10 ML IVP ONE ×2 (20:00→23:00)
[2021-05-26] MEDS: Vancomycin 2,000 MG/520 ML IV.SOLN IVPB SCH (22:05)
[2021-05-26] MEDS: Divalproex (24 HR) 500 MG TABLET PO SCH (22:11)
[2021-05-26] MEDS: Apixaban 5 MG TABLET PO SCH (22:11)
[2021-05-27] MEDS: Cefepime HCl 2,000 MG in 0.9 % Sodium Chloride Mini Bag 100 ML IVPB SCH ×2 (05:30→18:43)
[2021-05-27 05:39] LABS: Basophils # 0.1 K/mcL (0.0-0.2); Basophils % 0.7 %; Eosinophils # 0.3 K/mcL (0.0-0.6); Eosinophils % 3.4 %; Hematocrit 36.6 % (37.5-50.1); Hemoglobin 11.8 g/dL (12.9-16.9); Immature Granulocytes % 1.3 % (0-4); Lymphocytes # 1.6 K/mcL (0.6-4.6); Mean Corpuscular HGB Conc 32.2 g/dL (31.6-35.5); Mean Corpuscular Volume 89.9 fL (83.0-100.0); Mean Platelet Volume 10.2 fL (9.4-12.4); Monocytes # 0.7 K/mcL (0.0-1.3); Monocytes % 9.4 %; Neutrophils # 4.7 K/mcL (1.6-8.9); Platelet Count 152 K/mcL (140-400); Red Blood Count 4.07 M/mcL (4.19-5.50); Segmented Neutrophils % 63.2 %; White Blood Count 7.5 K/mcL (4.3-11.1)
[2021-05-27 05:54] LABS: BUN/Creatinine Ratio 12 (6-26); Blood Urea Nitrogen 11 mg/dL (8-23); Calcium 8.7 mg/dL (8.6-10.3); Carbon Dioxide 23 mEq/L (23-29); Chloride 107 mEq/L (98-107); Glucose 106 mg/dL (70-105); Osmolality,Calculated 286 (280-300); Potassium 3.7 mEq/L (3.5-5.1); Sodium 138 mEq/L (136-145); eGFR For African Americans > 60 (> 60); eGFR For Non-African Americans > 60 (> 60)
[2021-05-27] MEDS: Vancomycin 2,000 MG/520 ML IV.SOLN IVPB SCH (07:37)
[2021-05-27] MEDS: Apixaban 5 MG TABLET PO SCH ×2 (07:49→20:45)
[2021-05-27 08:12] LABS: Estimated Average Glucose 114 mg/dl; Hemoglobin A1C 5.6 %
[2021-05-27] MEDS ORDERED: Acetaminophen 325 MG TABLET PO PRN (14:27)
[2021-05-27] MEDS: Divalproex (24 HR) 500 MG TABLET PO SCH (20:43)
[2021-05-28] MEDS: Cefepime HCl 2,000 MG in 0.9 % Sodium Chloride Mini Bag 100 ML IVPB SCH ×2 (05:20→17:10)
[2021-05-28 05:56] LABS: Basophils # 0.1 K/mcL (0.0-0.2); Basophils % 1.1 %; Eosinophils # 0.3 K/mcL (0.0-0.6); Eosinophils % 4.2 %; Hematocrit 38.9 % (37.5-50.1); Hemoglobin 12.7 g/dL (12.9-16.9); Immature Granulocytes % 1.9 % (0-4); Lymphocytes # 2.3 K/mcL (0.6-4.6); Lymphocytes % 30.3 %; Mean Corpuscular HGB Conc 32.6 g/dL (31.6-35.5); Mean Corpuscular Hemoglobin 29.4 pg (28.0-33.3); Monocytes # 0.6 K/mcL (0.0-1.3); Monocytes % 8.2 %; Neutrophils # 4.1 K/mcL (1.6-8.9); Platelet Count 160 K/mcL (140-400); Red Blood Count 4.32 M/mcL (4.19-5.50); Red Cell Distribution Width 13.9 % (11.5-14.5); Segmented Neutrophils % 54.3 %; White Blood Count 7.5 K/mcL (4.3-11.1)
[2021-05-28 06:10] LABS: BUN/Creatinine Ratio 10 (6-26); Blood Urea Nitrogen 11 mg/dL (8-23); Calcium 9.3 mg/dL (8.6-10.3); Carbon Dioxide 25 mEq/L (23-29); Chloride 107 mEq/L (98-107); Glucose 104 mg/dL (70-105); Osmolality,Calculated 292 (280-300); Potassium 4.3 mEq/L (3.5-5.1); Sodium 141 mEq/L (136-145); eGFR For African Americans > 60 (> 60); eGFR For Non-African Americans > 60 (> 60)
[2021-05-28] MEDS: Apixaban 5 MG TABLET PO SCH ×2 (09:31→20:19)
[2021-05-28] MEDS: Vancomycin 2,000 MG/520 ML IV.SOLN IVPB SCH (14:37)
[2021-05-28] MEDS: Furosemide 40 MG TABLET PO SCH (14:37)
[2021-05-28] MEDS: BuPROPion XL (24 HR) 150 MG TABLET PO SCH (14:37)
[2021-05-28] MEDS: Tiotropium 10 INH DOSE IH SCH (15:17)
[2021-05-28] MEDS ORDERED: *HR* Enoxaparin 40 MG/0.4 ML SYRINGE SQ SCH (17:18)
[2021-05-28] MEDS: traZODone 50 MG TABLET PO SCH (20:18)
[2021-05-28] MEDS: Finasteride 5 MG TABLET PO SCH (20:19)
[2021-05-28] MEDS: Divalproex (24 HR) 500 MG TABLET PO SCH (20:19)
[2021-05-29] MEDS: Cefepime HCl 2,000 MG in 0.9 % Sodium Chloride Mini Bag 100 ML IVPB SCH ×2 (06:13→19:35)
[2021-05-29 06:36] LABS: Basophils # 0.1 K/mcL (0.0-0.2); Basophils % 1.4 %; Eosinophils # 0.3 K/mcL (0.0-0.6); Eosinophils % 3.8 %; Hematocrit 37.9 % (37.5-50.1); Hemoglobin 12.1 g/dL (12.9-16.9); Immature Granulocytes % 1.9 % (0-4); Lymphocytes # 1.6 K/mcL (0.6-4.6); Lymphocytes % 21.8 %; Mean Corpuscular HGB Conc 31.9 g/dL (31.6-35.5); Mean Corpuscular Hemoglobin 28.7 pg (28.0-33.3); Mean Corpuscular Volume 89.8 fL (83.0-100.0); Mean Platelet Volume 9.9 fL (9.4-12.4); Monocytes # 0.7 K/mcL (0.0-1.3); Monocytes % 8.9 %; Neutrophils # 4.5 K/mcL (1.6-8.9); Platelet Count 146 K/mcL (140-400); Red Blood Count 4.22 M/mcL (4.19-5.50); Red Cell Distribution Width 13.9 % (11.5-14.5); Segmented Neutrophils % 62.2 %; White Blood Count 7.3 K/mcL (4.3-11.1)
[2021-05-29 06:53] LABS: BUN/Creatinine Ratio 15 (6-26); Blood Urea Nitrogen 16 mg/dL (8-23); Carbon Dioxide 28 mEq/L (23-29); Chloride 106 mEq/L (98-107); Glucose 104 mg/dL (70-105); Osmolality,Calculated 293 (280-300); Potassium 3.9 mEq/L (3.5-5.1); Sodium 141 mEq/L (136-145); eGFR For African Americans > 60 (> 60); eGFR For Non-African Americans > 60 (> 60)
[2021-05-29] MEDS: allopurinoL 100 MG TABLET PO SCH (08:59)
[2021-05-29] MEDS: Apixaban 5 MG TABLET PO SCH ×2 (09:00→21:12)
[2021-05-29] MEDS: BuPROPion XL (24 HR) 150 MG TABLET PO SCH (09:00)
[2021-05-29] MEDS: Furosemide 40 MG TABLET PO SCH (09:01)
[2021-05-29] MEDS: Tiotropium 10 INH DOSE IH SCH (09:49)
[2021-05-29] MEDS: Vancomycin 2,000 MG/520 ML IV.SOLN IVPB SCH (10:56)
[2021-05-29] MEDS: Finasteride 5 MG TABLET PO SCH (21:11)
[2021-05-29] MEDS: Divalproex (24 HR) 500 MG TABLET PO SCH (21:11)
[2021-05-29] MEDS: traZODone 50 MG TABLET PO SCH (21:11)
[2021-05-30] MEDS: Cefepime HCl 2,000 MG in 0.9 % Sodium Chloride Mini Bag 100 ML IVPB SCH (05:15)
[2021-05-30] MEDS: Apixaban 5 MG TABLET PO SCH ×2 (07:50→20:17)
[2021-05-30] MEDS: allopurinoL 100 MG TABLET PO SCH (07:50)
[2021-05-30] MEDS: BuPROPion XL (24 HR) 150 MG TABLET PO SCH (07:51)
[2021-05-30] MEDS: Furosemide 40 MG TABLET PO SCH (07:51)
[2021-05-30] MEDS: Vancomycin 2,000 MG/520 ML IV.SOLN IVPB SCH (07:51)
[2021-05-30] MEDS: Tiotropium 10 INH DOSE IH SCH (08:21)
[2021-05-30] MEDS: Doxycycline 100 MG CAPSULE PO SCH (20:17)
[2021-05-30] MEDS: Finasteride 5 MG TABLET PO SCH (20:17)
[2021-05-30] MEDS: Divalproex (24 HR) 500 MG TABLET PO SCH (20:17)
[2021-05-30] MEDS: traZODone 50 MG TABLET PO SCH (20:17)
[2021-05-30 20:40] VITALS: PULSE 58
[2021-05-31 02:50] VITALS: BP 143/75; TEMP 97.9; O2SAT 93
[2021-05-31] MEDS: Tiotropium 10 INH DOSE IH SCH (07:20)
[2021-05-31] MEDS: Doxycycline 100 MG CAPSULE PO SCH (09:43)
[2021-05-31] MEDS: Furosemide 40 MG TABLET PO SCH (09:44)
[2021-05-31] MEDS: BuPROPion XL (24 HR) 150 MG TABLET PO SCH (09:44)
[2021-05-31] MEDS: Apixaban 5 MG TABLET PO SCH (09:44)
[2021-05-31] MEDS: allopurinoL 100 MG TABLET PO SCH (09:44)
== END 2021-05-31 15:57 | disposition home or self-care (01) | DRG 603 ==
LOC: EMEROOARM 11:53 → 3ANU 11:53 → SUATTDRO 16:38 → 3ANU 17:15
PROVIDERS: ADMIT Hospitalist; ATTEND Hospitalist

== ENCOUNTER 2022-04-10 22:17 | Observation (INO) ==
[2022-04-10] MEDS ORDERED: Morphine Sulfate 2 MG/ML SYRINGE IVP ONE (22:38)
[2022-04-10] MEDS ORDERED: Ondansetron 4 MG/2 ML VIAL IVP ONE (22:38)
[2022-04-10] MEDS ORDERED: Iopamidol - 370 500 ML MLS IVP ONE (22:40)
[2022-04-10] MEDS: 0.9 % Sodium Chloride 1,000 ML IVC ONE (23:07)
[2022-04-10 23:25] LABS: Basophils # 0.1 K/mcL (0.0-0.2); Basophils % 0.9 %; Eosinophils # 0.4 K/mcL (0.0-0.6); Eosinophils % 3.7 %; Hematocrit 39.5 % (37.5-50.1); Hemoglobin 13.2 g/dL (12.9-16.9); Immature Granulocytes % 0.5 % (0-4); Lymphocytes # 3.7 K/mcL (0.6-4.6); Lymphocytes % 38.3 %; Mean Corpuscular HGB Conc 33.4 g/dL (31.6-35.5); Mean Corpuscular Hemoglobin 29.5 pg (28.0-33.3); Mean Corpuscular Volume 88.4 fL (83.0-100.0); Mean Platelet Volume 10.6 fL (9.4-12.4); Monocytes # 0.7 K/mcL (0.0-1.3); Monocytes % 6.9 %; Neutrophils # 4.7 K/mcL (1.6-8.9); Platelet Count 191 K/mcL (140-400); Red Blood Count 4.47 M/mcL (4.19-5.50); Red Cell Distribution Width 14.2 % (11.5-14.5); Segmented Neutrophils % 49.7 %; White Blood Count 9.5 K/mcL (4.3-11.1)
[2022-04-11 00:01] LABS: Influenza A PCR Negative (Negative); Influenza B PCR Negative (Negative); Resp. Syncytial Virus PCR Negative (Negative)
[2022-04-11 00:02] LABS: SARS-CoV-2 by PCR (In House) Negative (Negative)
[2022-04-11 00:31] LABS: Alanine Aminotransferase 12 Units/L (7-52); Albumin 4.2 g/dL (3.5-5.7); Albumin/Globulin Ratio 1.7 (1.1-2.2); Alkaline Phosphatase 96 Units/L (34-104); Aspartate Amino Transferase 21 Units/L (13-39); BUN/Creatinine Ratio 8 (6-26); Bilirubin,Direct 0.4 mg/dL (0.0-0.2); Bilirubin,Indirect 1.9 mg/dL (0.0-1.0); Bilirubin,Total 2.3 mg/dL (0.3-1.0); Blood Urea Nitrogen 10 mg/dL (8-23); Calcium 9.2 mg/dL (8.6-10.3); Carbon Dioxide 27 mEq/L (23-29); Chloride 102 mEq/L (98-107); Ethanol < 10 mg/dL (Less than 10); Globulin 2.5 g/dL (2.4-3.5); Glucose 93 mg/dL (70-105); Lipase 7 Units/L (11-82); Magnesium 1.7 mg/dL (1.6-2.6); Osmolality,Calculated 287 (280-300); Potassium 2.7 mEq/L (3.5-5.1); Sodium 139 mEq/L (136-145); Thyroid Stimulating Hormone 5.112 mcIU/mL (0.340-5.600); Total Protein 6.7 g/dL (6.4-8.9); Troponin I < 0.03 ng/mL (< 0.04); eGFR For African Americans > 60 (> 60); eGFR For Non-African Americans 60 (> 60)
[2022-04-11] MEDS ORDERED: 0.9 % Sodium Chloride 1,000 ML IV ONE (03:00)
[2022-04-11] MEDS ORDERED: cefTRIAXone 1,000 MG in 0.9 % Sodium Chloride Mini Bag 100 ML IVPB ONE (03:02)
[2022-04-11 06:05] LABS: Bacteria,Urine Many per hpf (None-Few); Bilirubin,Urine Negative (Negative); Blood,Urine Large (Negative); Clarity,Urine Ex.Turbid (Clear); Color,Urine Yellow (Yellow); Glucose,Urine (UA) Normal (Normal); Ketones,Urine Negative (Negative); Leukocyte Esterase,Urine Large (Negative); Mucus,Urine Few per lpf (None-Few); Nitrite,Urine Positive (Negative); PH,Urine 8.5 pH Units (5.0-8.0); Protein,Urine >=600 mg/dL (Neg-Trace); RBC,Urine TNTC per hpf (0-3); Specific Gravity,Urine > 1.030 (1.010-1.025); Urobilinogen,Urine Normal (Normal); WBC,Urine TNTC per hpf (0-3)
[2022-04-11] MEDS: 0.9 % Sodium Chloride 1,000 ML IVC ONE (07:22)
[2022-04-11] MEDS ORDERED: Ondansetron 4 MG/2 ML VIAL IVP PRN (08:21)
[2022-04-11] MEDS ORDERED: Naloxone 0.4 MG/ML INJ IVP PRN (08:21)
[2022-04-11] MEDS ORDERED: Ipratropium/Albuterol Neb 3 ML IH PRN (08:26)
[2022-04-11] MEDS ORDERED: cefTRIAXone 1,000 MG in Water for inj. (sterile) 10 ML IVP SCH (09:00)
[2022-04-11] MEDS ORDERED: Pantoprazole 40 MG VIAL IVP SCH (09:00)
[2022-04-11] MEDS ORDERED: Lactobacillus 1 EACH CAP.SPRINK PO SCH (11:30)
[2022-04-11 13:23] LABS: Magnesium 1.8 mg/dL (1.6-2.6); Phosphorous 2.8 mg/dL (2.7-4.5)
[2022-04-11 13:28] LABS: BUN/Creatinine Ratio 8 (6-26); Blood Urea Nitrogen 8 mg/dL (8-23); Calcium 8.2 mg/dL (8.6-10.3); Carbon Dioxide 25 mEq/L (23-29); Chloride 108 mEq/L (98-107); Glucose 89 mg/dL (70-105); Osmolality,Calculated 290 (280-300); Potassium 3.5 mEq/L (3.5-5.1); Sodium 141 mEq/L (136-145); eGFR For African Americans > 60 (> 60); eGFR For Non-African Americans > 60 (> 60)
[2022-04-11] MEDS ORDERED: *HR* Heparin 5,000 UNIT/ML VIAL SQ SCH (18:00)
[2022-04-11 18:31] VITALS: BP 186/84; PULSE 52; TEMP 97.5; O2SAT 97
[2022-04-12] MEDS ORDERED: cefTRIAXone 1,000 MG in 0.9 % Sodium Chloride 10 ML IVP SCH (06:00)
== END 2022-04-11 19:12 | disposition left against medical advice (07) ==
LOC: 3BNU 22:17 → EMEROOARM 22:17 → 3BNU 04-11 11:15
PROVIDERS: ADMIT General Practice; ATTEND General Practice

== ENCOUNTER 2022-05-04 21:05 | Inpatient (IN) ==
[2022-05-04] MEDS ORDERED: levoFLOXacin 750 MG/150 ML 750 MG/150 ML BAG IVPB ONE (23:18)
[2022-05-04] MEDS ORDERED: MetroNIDAZOLE 500 MG/100 ML 500 MG/100 ML BAG IVPB ONE (23:18)
[2022-05-05 00:33] LABS: Bacteria,Urine Few per hpf (None-Few); Bilirubin,Urine Negative (Negative); Blood,Urine Large (Negative); Clarity,Urine Turbid (Clear); Color,Urine Brown (Yellow); Glucose,Urine (UA) Normal (Normal); Ketones,Urine Trace mg/dL (Negative); Leukocyte Esterase,Urine Negative (Negative); Mucus,Urine Few per lpf (None-Few); Nitrite,Urine Negative (Negative); Protein,Urine 100 mg/dL (Neg-Trace); RBC,Urine TNTC per hpf (0-3); Urobilinogen,Urine Normal (Normal); WBC,Urine 0-3 per hpf (0-3)
[2022-05-05 00:53] LABS: Eosinophils % 3.5 %; Hemoglobin 13.7 g/dL (12.9-16.9); Immature Platelets 6.4 % (1.1-6.1)
[2022-05-05 01:02] LABS: Alanine Aminotransferase 8 Units/L (7-52); Albumin 4.3 g/dL (3.5-5.7); Alkaline Phosphatase 102 Units/L (34-104); Aspartate Amino Transferase 12 Units/L (13-39); BUN/Creatinine Ratio 9 (6-26); Bilirubin,Direct 0.3 mg/dL (0.0-0.2); Bilirubin,Indirect 1.8 mg/dL (0.0-1.0); Bilirubin,Total 2.1 mg/dL (0.3-1.0); Blood Urea Nitrogen 9 mg/dL (8-23); Calcium 9.1 mg/dL (8.6-10.3); Carbon Dioxide 26 mEq/L (23-29); Chloride 105 mEq/L (98-107); Globulin 2.2 g/dL (2.4-3.5); Glucose 82 mg/dL (70-105); Osmolality,Calculated 284 (280-300); Potassium 3.4 mEq/L (3.5-5.1); Sodium 138 mEq/L (136-145); Total Protein 6.5 g/dL (6.4-8.9); eGFR For African Americans > 60 (> 60); eGFR For Non-African Americans > 60 (> 60)
[2022-05-05 01:06] LABS: Basophils # 0.1 K/mcL (0.0-0.2); Basophils % 0.9 %; Eosinophils # 0.3 K/mcL (0.0-0.6); Immature Granulocytes % 0.4 % (0-4); Lymphocytes # 3.2 K/mcL (0.6-4.6); Lymphocytes % 34.9 %; Mean Corpuscular HGB Conc 33.4 g/dL (31.6-35.5); Mean Corpuscular Hemoglobin 29.6 pg (28.0-33.3); Mean Corpuscular Volume 88.6 fL (83.0-100.0); Mean Platelet Volume 10.8 fL (9.4-12.4); Monocytes # 0.4 K/mcL (0.0-1.3); Monocytes % 4.4 %; Neutrophils # 5.1 K/mcL (1.6-8.9); Platelet Count 156 K/mcL (140-400); Red Blood Count 4.63 M/mcL (4.19-5.50); Red Cell Distribution Width 14.2 % (11.5-14.5); Segmented Neutrophils % 55.9 %; White Blood Count 9.1 K/mcL (4.3-11.1)
[2022-05-05 01:10] LABS: INR 1.1; Prothrombin Time 11.9 Seconds (9.4-12.1)
[2022-05-05 01:12] LABS: Activated Partial Thrombo Time 32.7 Seconds (26.0-36.0)
[2022-05-05] MEDS ORDERED: Acetaminophen 325 MG TABLET PO PRN (01:29)
[2022-05-05] MEDS ORDERED: Naloxone 0.4 MG/ML INJ IVP PRN (01:29)
[2022-05-05] MEDS ORDERED: Melatonin 3 MG TABLET PO PRN (01:29)
[2022-05-05] MEDS ORDERED: *HR* HYDROcodone/Acet 5/325 mg TABLET PO PRN (01:29)
[2022-05-05] MEDS ORDERED: *HR* OxyCODONE Immed Rel 5 MG TABLET PO PRN (01:29)
[2022-05-05] MEDS ORDERED: Ondansetron ODT 4 MG TAB.RAPDIS SL PRN (01:29)
[2022-05-05 04:40] LABS: BUN/Creatinine Ratio 10 (6-26); Blood Urea Nitrogen 9 mg/dL (8-23); Calcium 8.6 mg/dL (8.6-10.3); Carbon Dioxide 26 mEq/L (23-29); Chloride 105 mEq/L (98-107); Glucose 82 mg/dL (70-105); Magnesium 1.7 mg/dL (1.6-2.6); Osmolality,Calculated 286 (280-300); Potassium 3.2 mEq/L (3.5-5.1); Sodium 139 mEq/L (136-145); eGFR For African Americans > 60 (> 60); eGFR For Non-African Americans > 60 (> 60)
[2022-05-05 04:44] LABS: Hematocrit 39.5 % (37.5-50.1); Hemoglobin 12.9 g/dL (12.9-16.9); Mean Corpuscular HGB Conc 32.7 g/dL (31.6-35.5); Mean Corpuscular Hemoglobin 29.2 pg (28.0-33.3); Mean Corpuscular Volume 89.4 fL (83.0-100.0); Mean Platelet Volume 10.8 fL (9.4-12.4); Platelet Count 136 K/mcL (140-400); Red Blood Count 4.42 M/mcL (4.19-5.50); White Blood Count 7.5 K/mcL (4.3-11.1)
[2022-05-05] MEDS: 0.9 % Sodium Chloride 1,000 ML IVC SCH ×2 (04:54→22:28)
[2022-05-05] MEDS ORDERED: MetroNIDAZOLE 500 MG/100 ML 500 MG/100 ML BAG IVPB SCH (08:00)
[2022-05-05 10:07] LABS: Adenovirus Not Detected (Not Detect); Bordetella Pertussis Not Detected (Not Detect); Chlamydophila pneumoniae Not Detected (Not Detect); Coronavirus 229E Not Detected (Not Detect); Coronavirus HKU1 Not Detected (Not Detect); Coronavirus NL63 Not Detected (Not Detect); Coronavirus OC43 Not Detected (Not Detect); Human Metapneumovirus Not Detected (Not Detect); Human Rhinovirus/Enterovirus Not Detected (Not Detect); Influenza A Subtype 2009 H1 Not Detected (Not Detect); Influenza B Not Detected (Not Detect); Mycoplasma pneumoniae Not Detected (Not Detect); Parainfluenza Virus 1 Not Detected (Not Detect); Parainfluenza Virus 2 Not Detected (Not Detect); Parainfluenza Virus 3 Not Detected (Not Detect); Parainfluenza Virus 4 Not Detected (Not Detect); Respiratory Syncytial Virus Not Detected (Not Detect); SARS-CoV-2 Not Detected (Not Detect)
[2022-05-05] MEDS: amLODIPine 5 MG TABLET PO SCH (11:05)
[2022-05-05] MEDS: Vancomycin Oral Soln 125 MG/2.5 ML UDC PO SCH ×2 (17:06→22:20)
[2022-05-05] MEDS ORDERED: levoFLOXacin 750 MG/150 ML 750 MG/150 ML BAG IVPB SCH (21:00)
[2022-05-06 02:10] LABS: Basophils % 0.6 %; Hemoglobin 12.4 g/dL (12.9-16.9); Lymphocytes % 20.6 %; Mean Corpuscular HGB Conc 32.6 g/dL (31.6-35.5); Red Cell Distribution Width 13.8 % (11.5-14.5)
[2022-05-06 02:12] LABS: Basophils # 0.1 K/mcL (0.0-0.2); Eosinophils # 0.3 K/mcL (0.0-0.6); Eosinophils % 3.4 %; Immature Granulocytes % 0.5 % (0-4); Immature Platelets 5.4 % (1.1-6.1); Mean Corpuscular Hemoglobin 29.2 pg (28.0-33.3); Mean Corpuscular Volume 89.4 fL (83.0-100.0); Mean Platelet Volume 10.1 fL (9.4-12.4); Monocytes # 0.7 K/mcL (0.0-1.3); Monocytes % 6.9 %; Neutrophils # 6.6 K/mcL (1.6-8.9); Platelet Count 144 K/mcL (140-400); Red Blood Count 4.25 M/mcL (4.19-5.50); White Blood Count 9.7 K/mcL (4.3-11.1)
[2022-05-06 02:34] LABS: BUN/Creatinine Ratio 6 (6-26); Blood Urea Nitrogen 6 mg/dL (8-23); Calcium 8.7 mg/dL (8.6-10.3); Carbon Dioxide 25 mEq/L (23-29); Chloride 106 mEq/L (98-107); Glucose 85 mg/dL (70-105); Magnesium 1.6 mg/dL (1.6-2.6); Osmolality,Calculated 283 (280-300); Phosphorous 2.3 mg/dL (2.7-4.5); Potassium 3.9 mEq/L (3.5-5.1); Sodium 138 mEq/L (136-145); eGFR For African Americans > 60 (> 60); eGFR For Non-African Americans > 60 (> 60)
[2022-05-06] MEDS ORDERED: NON-FORMULARY MEDICATION 1 EACH EACH (Albuterol Sulfate 8.5 GM Hfa.Aer.Ad) IH PRN (08:48)
[2022-05-06] MEDS ORDERED: Ipratropium/Albuterol Neb 3 ML IH PRN (08:48)
[2022-05-06] MEDS ORDERED: Furosemide 40 MG TABLET PO SCH (09:00)
[2022-05-06] MEDS: BuPROPion XL (24 HR) 150 MG TABLET PO SCH (10:06)
[2022-05-06] MEDS: amLODIPine 5 MG TABLET PO SCH (10:06)
[2022-05-06] MEDS: Vancomycin Oral Soln 125 MG/2.5 ML UDC PO SCH ×4 (10:06→21:27)
[2022-05-06] MEDS: Cholecalciferol (D-3) 1,000 UNIT (25MCG) TABLET PO SCH (10:07)
[2022-05-06] MEDS: allopurinoL 100 MG TABLET PO SCH (10:07)
[2022-05-06] MEDS ORDERED: Divalproex (24 HR) 500 MG TABLET PO SCH (21:00)
[2022-05-06] MEDS ORDERED: Finasteride 5 MG TABLET PO SCH (21:00)
[2022-05-06] MEDS ORDERED: traZODone 50 MG TABLET PO SCH (21:00)
[2022-05-07 07:21] LABS: Hemoglobin 12.4 g/dL (12.9-16.9); Immature Granulocytes % 0.5 % (0-4); Monocytes % 7.8 %
[2022-05-07 07:23] LABS: Basophils # 0.1 K/mcL (0.0-0.2); Basophils % 1.4 %; Eosinophils # 0.3 K/mcL (0.0-0.6); Eosinophils % 4.9 %; Hematocrit 38.6 % (37.5-50.1); Immature Platelets 6.3 % (1.1-6.1); Lymphocytes # 1.6 K/mcL (0.6-4.6); Lymphocytes % 24.6 %; Mean Corpuscular HGB Conc 32.1 g/dL (31.6-35.5); Mean Corpuscular Volume 90.4 fL (83.0-100.0); Mean Platelet Volume 10.5 fL (9.4-12.4); Monocytes # 0.5 K/mcL (0.0-1.3); Platelet Count 135 K/mcL (140-400); Red Blood Count 4.27 M/mcL (4.19-5.50); Segmented Neutrophils % 60.8 %; White Blood Count 6.5 K/mcL (4.3-11.1)
[2022-05-07 07:44] LABS: BUN/Creatinine Ratio 8 (6-26); Blood Urea Nitrogen 8 mg/dL (8-23); Calcium 8.8 mg/dL (8.6-10.3); Carbon Dioxide 27 mEq/L (23-29); Chloride 104 mEq/L (98-107); Glucose 114 mg/dL (70-105); Osmolality,Calculated 285 (280-300); Potassium 3.4 mEq/L (3.5-5.1); Sodium 138 mEq/L (136-145); eGFR For African Americans > 60 (> 60); eGFR For Non-African Americans > 60 (> 60)
[2022-05-07] MEDS: Cholecalciferol (D-3) 1,000 UNIT (25MCG) TABLET PO SCH (09:50)
[2022-05-07] MEDS: allopurinoL 100 MG TABLET PO SCH (09:50)
[2022-05-07] MEDS: BuPROPion XL (24 HR) 150 MG TABLET PO SCH (09:50)
[2022-05-07] MEDS: amLODIPine 5 MG TABLET PO SCH (09:50)
[2022-05-07] MEDS: Vancomycin Oral Soln 125 MG/2.5 ML UDC PO SCH ×2 (09:50→13:46)
[2022-05-07 09:54] VITALS: BP 135/70; PULSE 52; TEMP 97.4; O2SAT 95
== END 2022-05-07 15:00 | disposition home or self-care (01) | DRG 372 ==
LOC: 3ANU 21:05 → EMEROOARM 21:05 → SUATTDRO 05-05 01:34 → 3ANU 05-05 02:07
PROVIDERS: ADMIT Internal Medicine; ATTEND Internal Medicine